=== PATIENT | female | born 1965 | race Two or more races ===

== ENCOUNTER → 2018-04-26 | Outpatient (CLI) | payer MEDICARE, OTHER ==
--- NOTE | 2018-04-26 11:30 | WOMENS IMAGING REPORT ---
EXAM DESCRIPTION: 3D SCREENING MAMMO BILAT COMPLETED DATE/TIME: 04/26/2018 11:02 am REASON FOR STUDY: SCREENING MAMMO Z12.31 ENCNTR SCREEN MAMMOGRAM FOR MALIGNANT NEOPLASM OF JEFF COMPARISON: None. TECHNIQUE: Standard craniocaudal and mediolateral oblique views of each breast recorded using digita l acquisition and breast tomosynthesis. LIMITATIONS: None. FINDINGS: No masses, calcifications or architectural distortion. No areas of suspicion. Read with the assistance of CAD. .[facility] - R2 Cenova Version 1.3 .[facility] - R2 Cenova Version 1.3 .[facility] - R2 Cenova Version 2.4 .[facility] Cenova Version 2.4 .[facility] - R2 [employer]er Tender Version 9.2 IMPRESSION: NORMAL MAMMOGRAM. BIRADS 1. BREAST DENSITY: b. There are scattered areas of fibroglandular density. BIRAD: 1 NEGATIVE RECOMMENDATION: ROUTINE SCREENING Please continue yearly bilateral screening mammography/tomosynthesis in April 2019 COMMENT: The patient has been notified of the results by letter per MQSA requirements. Additional no tification policies are in place for contacting patient with suspicious or incomplete findings. Quality ID #[id number]: The [employer] recommends an annual screening mammogram for women aged 40 years or over. This facility utilizes a reminder system to ensure that all patients receive reminder letters, and/or direct phone calls for appointments. This includes reminders for routine scr eening mammograms, diagnostic mammograms, or other Breast Imaging Interventions when appropriate. Th is patient will be placed in the appropriate reminder system. The [employer] (ACR) has developed recommendations for screening MRI of the breast s in certain patient populations, to be used in conjunction with mammography. Breast MRI surveillanc e may be appropriate for women with more than 20% lifetime risk of developing breast cancer as deter mined by genetic testing, significant family history of the disease, or history of mantle radiation f or Hodgkins Disease. ACR Practice Guidelines 2008. DBT Technology DBT is a type of tomographic mammography. With conventional mammography, overlapping breast tissue ma y make lesions difficult to detect, even with good compression. DBT uses an x-ray tube that rotates a round the breast, taking images at different angles. These images are then combined to create thin sl ices of the breast that the radiologist can view as a 3D reconstruction. The [employer] unit can perform full-field digital mammograms (2D imaging); or DBT (3D imaging); or both, in a combination mode that quickly performs both the mammogram and the tomosynthesis scan while the breast is still compressed. PQRS 6045F: Fluoroscopic imaging is not utilized for breast tomosynthesis. TECHNICAL DOCUMENTATION: FINDING NUMBER: (1) ASSESSMENT: (1) JOB ID: [id number] [employer]- All Rights Reserved Reading location - IP/workstation name: [facility]-[email or web address]
== END ==
LOC: WI 09:34
PROVIDERS: ATTEND Nurse Practitioner
DX: Z12.31 Encounter for screening mammogram for malignant neoplasm of breast (principal)
CPT/HCPCS: 77063; 77067

== ENCOUNTER 2019-01-14 21:03 | Observation (INO) | payer MEDICARE ==
[2019-01-14] MEDS ORDERED: NORMAL SALINE 1000 ML 1,000 ML IV ONE (22:09)
--- NOTE | 2019-01-14 22:16 | ER Document Report ---
ED Cardiac - General Chief Complaint: Palpitations Stated Complaint: RAPID HEART RATE,DIZZY,NAUSEA Time Seen by Provider: 01/14/19 21:50 Primary Care Provider: JENNIFER MOSES NP [Primary Care Provider] - Follow up as needed Mode of Arrival: Ambulatory Information source: Patient TRAVEL OUTSIDE OF THE [place] IN LAST 30 DAYS: No - HPI Patient complains to provider of: Palpitations, Shortness of breath Notes: Patient is here with complaints of tachycardia and exertional dyspnea. The patient states for the last several weeks, she is noticed that her heart rate has been higher than normal. Running anywhere from 100-140. She does have a previous history of SVT and has had a cardiac ablation in the past. She states that over the last several weeks she is also had some exertional dyspnea and episodes of feeling like she is going to pass out. She denies any actual syncopal episodes. She denies any chest pain. She has a history of hypertension, high cholesterol, diabetes. No history of CAD. She denies any recent long trips or surgeries, leg pain or leg swelling, hormone use, cancer, history of DVT or PE. She denies any abdominal pain. No nausea, vomiting, diarrhea. She states that occasionally when she feels like she is going to pass out, she does get slightly diaphoretic. She denies any history of congestive heart failure. She denies any abdominal pain. No other specific complaints at this time. - Related Data Allergies/Adverse Reactions: latex Allergy (Verified 01/14/19 22:17) Past Medical History - Social History Smoking Status: Never Smoker Frequency of alcohol use: Occasional Drug Abuse: None Family History: Reviewed & Not Pertinent Patient has suicidal ideation: No Patient has homicidal ideation: No - Past Medical History Cardiac Medical History: Reports: Hx Hypercholesterolemia Endocrine Medical History: Reports: Hx Diabetes Mellitus Type 2 Renal/ Medical History: Denies: Hx Peritoneal Dialysis Past Surgical History: Reports: Hx Cardiac Surgery - ablasion Review of Systems - Review of Systems -: Yes All other systems reviewed and negative Physical Exam - Vital signs Vitals: Temp Pulse Resp BP Pulse Ox 97.9 F 114 H 16 133/76 H 98 01/14/19 21:35 01/14/19 21:35 01/14/19 21:35 01/14/19 21:35 01/14/19 21:35 - Notes Notes: GENERAL: alert, cooperative, nontoxic, no distress. HEAD: normocephalic, atraumatic EYES: conjunctiva pink without discharge, no external redness or swelling. EARS: no external swelling, no external redness NOSE: atraumatic, no external swelling MOUTH/THROAT: mucous membranes moist and pink, posterior pharynx without erythema, swelling, exudate. No trismus or drooling. NECK: soft, supple, full range of motion, no meningismus. CHEST: no distress, lungs clear and equal throughout. No wheezing, rales, rhonchi. CARDIAC: regular rhythm, mild tachycardia, no murmur, normal capillary refill, normal pulses. No peripheral edema noted. ABDOMEN: Soft, nontender. BACK: full range of motion, no CVA tenderness. EXTREMITIES: full range of motion of all extremities. No redness, no swelling. NEURO: alert and oriented x 3, no focal deficits, full range of motion of all extremities. PYSCH: appropriate mood, affect. Patient is cooperative. SKIN: pink, warm, dry, no rash. Course - Re-evaluation Re-evalutation: 01/14/19 23:18 Patient noted to have a low potassium at 3.2, as well as a low magnesium of 1.2. I have ordered potassium p.o. and magnesium IV. We will continue to monitor at this time. The remainder of her labs are unremarkable at this point. 01/14/19 23:35 Patient is resting comfortably at this time. D-dimer has been ordered. We will await the results of this test to determine if CTA is required. Heart score is 4, making her moderate risk of 12 to 16.6% of MACE. Will await d-dimer results. If negative, do believe that the patient should be admitted to the hospital due to her exertional dyspnea and near syncope. She will require further evaluation. 01/15/19 01:00 Patient currently resting comfortably at this time. Patient here with complaints of palpitations, near syncope, exertional dyspnea for the last several weeks. She is noted to be mildly tachycardic. She has a prior history of SVT with ablation. EKG did show today shows sinus tachycardia with no SVT or other ischemic changes. Troponin is negative. Her magnesium and potassium were both noted to be low and were both repleted here in the emergency department. D-dimer is negative, the patient has no other PE risk factors, therefore I do not believe any further PE rule out is indicated at this time. Due to the fact that the patient is having exertional dyspnea with near syncope and tachycardia, believe she should be admitted to the hospital for further evaluation and management with possible echocardiogram. Case was discussed with the hospitalist. Patient will be admitted to the hospital. - Vital Signs Vital signs: Temp Pulse Resp BP Pulse Ox 97.9 F 114 H 23 H 108/71 96 01/14/19 21:35 01/14/19 21:35 01/15/19 00:01 01/15/19 00:01 01/15/19 00:01 - Laboratory Result Diagrams: 01/14/19 22:06 01/14/19 22:06 Laboratory results interpreted by me: 01/14/19 01/14/19 22:06 22:06 WBC 10.8 H Potassium 3.2 L Chloride 97 L Magnesium 1.2 L* - EKG Interpretation by Me EKG shows normal: Sinus rhythm, [place], Intervals, QRS Complexes Rate: Tachycardia When compared to previous EKG there are: Other - Rate of 108, sinus tachycardia, no ST elevation or depression, no STEMI. Nonspecific T wave abnormalities with inversion in lead III and aVF. Also flattened T waves in V2, inverted T wave in V3. No previous EKGs to compare this to. Discharge - Discharge Clinical Impression: Palpitations, Hypokalemia, Hypomagnesemia, Exertional dyspnea, Near syncope Condition: Stable Disposition: ADMITTED OBSERVATION Admitting Provider: Emily (Hospitalist) Unit Admitted: Telemetry Referrals: JENNIFER MOSES NP [Primary Care Provider] - Follow up as needed
[2019-01-14 22:25] LABS: ABSOLUTE EOSINOPHILS # (AUTO) 0.1 10^3/uL (0.0-0.6); ABSOLUTE LYMPHOCYTES (AUTO) 4.7 10^3/uL (0.5-4.7); ABSOLUTE MONOCYTES (AUTO) 0.8 10^3/uL (0.1-1.4); ABSOLUTE NEUT (AUTO) 5.2 10^3/uL (1.7-8.2); BASOPHILS % (AUTO) 0.4 % (0-2); EOSINOPHILS % (AUTO) 0.8 % (0-6); HEMATOCRIT 38.7 % (36.0-47.0); HEMOGLOBIN 13.1 g/dL (12.0-15.5); LYMPHOCYTES % (AUTO) 43.6 % (13-45); MEAN CORPUSCULAR HEMOGLOBIN 27.7 pg (27.0-33.4); MEAN CORPUSCULAR VOLUME 82 fl (80-97); PLATELET COUNT 307 10^3/uL (150-450); RED BLOOD COUNT 4.74 10^6/uL (3.72-5.28); RED CELL DISTRIBUTION WIDTH 13.6 % (11.5-14.0); SEGMENTED NEUTROPHILS % (AUTO) 48.2 % (42-78); TOTAL CELLS COUNTED % (AUTO) 100 %; WHITE BLOOD COUNT 10.8 10^3/uL (4.0-10.5)
[2019-01-14 22:41] LABS: ALANINE AMINOTRANSFERASE 29 U/L (9-52); ALBUMIN 4.2 g/dL (3.5-5.0); ALKALINE PHOSPHATASE 104 U/L (38-126); ANION GAP 12 (5-19); ASPARTATE AMINO TRANSFERASE 27 U/L (14-36); BILIRUBIN,DIRECT 0.2 mg/dL (0.0-0.4); BILIRUBIN,TOTAL 0.6 mg/dL (0.2-1.3); BLOOD UREA NITROGEN 17 mg/dL (7-20); CALCIUM 9.7 mg/dL (8.4-10.2); CARBON DIOXIDE 30 mmol/L (22-30); CHLORIDE 97 mmol/L (98-107); GLUCOSE 94 mg/dL (75-110); POTASSIUM 3.2 mmol/L (3.6-5.0); SODIUM 138.7 mmol/L (137-145); TOTAL PROTEIN 7.1 g/dL (6.3-8.2)
[2019-01-14 22:52] LABS: NT PRO BNP 16 pg/mL (5-900); TROPONIN I < 0.012 ng/mL
--- NOTE | 2019-01-14 23:07 | RADIOLOGY REPORT (SQ) ---
EXAM DESCRIPTION: XR CHEST 2 VIEWS COMPLETED DATE/TME: 01/14/2019 22:09 CLINICAL HISTORY: sob, dizziness COMPARISON: None. FINDINGS: Frontal and lateral views of the chest. The cardiomediastinal silhouette has normal size and contour. No consolidation, pneumothorax, or pleural effusion. No displaced rib fractures identified. Leads overlie the chest. Prior cholecystectomy. IMPRESSION: 1. No acute pulmonary process identified.
[2019-01-14] MEDS ORDERED: POTASSIUM CHLORIDE 10 MEQ CAPSULE.ER PO ONE (23:17)
[2019-01-14] MEDS: MAGNESIUM SULFATE/D5W 1 GM/100 ML RTUPB IV SCH (23:25)
[2019-01-15] MEDS ORDERED: ACETAMINOPHEN 325 MG TABLET PO PRN (01:07)
[2019-01-15] MEDS ORDERED: ONDANSETRON HCL INJ/PF 4 MG/2 ML SDV IV PRN (01:07)
[2019-01-15] MEDS ORDERED: MAGNESIUM HYDROXIDE SUSP 30 ML UDCUP PO PRN (01:07)
[2019-01-15] MEDS ORDERED: ZOLPIDEM TARTRATE 5 MG TABLET PO PRN (01:07)
[2019-01-15] MEDS ORDERED: MAG HYDROX/AL HYDROX/SIMETH SUSP 30 ML UDCUP PO PRN (01:07)
[2019-01-15] MEDS ORDERED: NORMAL SALINE 1000 ML 1,000 ML IV PRN ×2 (01:07→15:03)
[2019-01-15] MEDS: MAGNESIUM SULFATE/D5W 1 GM/100 ML RTUPB IV SCH (01:37)
[2019-01-15] MEDS ORDERED: CLONAZEPAM 1 MG TABLET PO PRN (01:57)
[2019-01-15] MEDS ORDERED: MECLIZINE HCL 25 MG TABLET PO PRN (01:58)
--- NOTE | 2019-01-15 02:09 | PDOC H&P ---
History of Present Illness Admission Date/PCP: 01/15/19 01:15 JENNIFER MOSES NP Patient complains of: Nausea and fainting feeling History of Present Illness: TONY KRISHNA is a 53 year old female with a history of hypertension, type 2 diabetes mellitus and dyslipidemia as well as chronic back pain and SVT status post cardiac ablation who presented to the emergency room with acute onset of nausea with presyncope and mild disorientation today as well as recent dyspnea that is mainly on exertion. She has been having dyspnea going from the kitchen to the bathroom. She had been at the palpitations today without chest pain. She stated that she would need to lay down after taking a shower from exhaustion. She denies any fever or chills. No vomiting or abdominal pain. She stopped taking Lasix about 2-3 weeks ago when she ran out. She has been using it for lower extremity edema on a as needed basis for a while and recently on a as needed basis. No dysuria, oliguria or hematuria or flank pain. Upon presentation to the emergency room, her pulse was 114 and blood pressure 133/76 with a temperature of 97.9 and pulse oximetry of 98% on room air with respiratory rate of 16. Labs revealed minimal leukocytosis of 10.8 and her d- dimer was 0.38. Her CMP was remarkable for hypokalemia 3.2 and hypomagnesemia of 1.2 with negative troponin I less than 0.0 212. TSH came back 2.39. Portable chest x-ray showed no acute cardiopulmonary disease. EKG showed sinus tachycardia with a rate of 108. Portable chest x-ray showed no acute cardiopulm onary disease and EKG showed sinus tachycardia with a rate of 108. The patient was given 40 meticortelone p.o. potassium chloride as well as 2 g of IV magnesium sulfate. She will be admitted to an observation telemetry bed for further evaluation and management. Past Medical History Cardiac Medical History: Reports: Hyperlipidema, Hypertension, Other - SVT status post cardiac ablation and leg edema Endocrine Medical History: Reports: Diabetes Mellitus Type 2 GI Medical History: Reports: Other - Irritable bowel syndrome Musculoskeltal Medical History: Reports: Other - Chronic back pain Psychiatric Medical History: Reports: Depression, Other - And anxiety Past Surgical History Past Surgical History: Reports: Cholecystectomy, Tonsillectomy, Other - 4 back surgeries, cardiac ablation for SVT, radiofrequency ablation likely Social History Smoking Status: Never Smoker Frequency of Alcohol Use: Rare Hx Recreational Drug Use: No Family History Family History: Significantly positive for DE. Father from [place] at age of 63 and her sister had DE at age of 58. Another sister had an DE at age of 50 and a brother at age of 60. History is otherwise positive for diabetes mellitus and hypertension. Parental Family History Reviewed: Yes Children Family History Reviewed: Yes Sibling(s) Family History Reviewed.: Yes Medication/Allergy Home Medications: Aspirin [Ecotrin 81 mg EC Tablet] 81 mg PO DAILY 01/14/19 Atorvastatin Calcium [Lipitor 80 mg Tablet] 80 mg PO DAILY 01/14/19 Clonazepam [Klonopin] 0.5 mg PO BID PRN 01/14/19 Furosemide [Lasix 20 mg Tablet] 20 mg PO DAILY 01/14/19 Linaclotide [Linzess 145 Mcg Capsule] 145 mcg PO DAILY 01/14/19 Meclizine HCl [Antivert 25 mg Tablet] 25 mg PO TID PRN 01/14/19 Meloxicam [Mobic] 15 mg PO DAILY 01/14/19 Metformin HCl 1,000 mg PO BID 01/14/19 Sertraline HCl 100 mg PO DAILY 01/14/19 Trazodone HCl 50 mg PO QHS 01/14/19 Allergies/Adverse Reactions: latex Allergy (Verified 01/14/19 22:17) Review of Systems Review of Systems: As per history of present illness. All pertinent systems were reviewed above. Constitutional, HEENT, cardiovascular, respiratory, GI, , musculoskeletal, neuro, psychiatric, endocrine, integumentary and hematologic systems were reviewed and are otherwise negative/unremarkable except for positive findings mentioned above in the HPI. Physical Exam Vital Signs: Temp Pulse Resp BP Pulse Ox 97.9 F 114 H 23 H 108/71 96 01/14/19 21:35 01/14/19 21:35 01/15/19 00:01 01/15/19 00:01 01/15/19 00:01 Intake & Output 01/13/19 01/14/19 01/15/19 06:59 06:59 06:59 Intake Total 1100 Balance 1100 Weight 70.1 kg Exam: Generally: Pleasant middle-aged female in no acute distress Vital signs-as listed Head - atraumatic, normocephalic. Pupils - equal, round and reactive to light and accommodation. Extraocular movements are intact. No scleral icterus. Oropharynx - moist mucous membranes and tongue. No pharyngeal erythema or exudate. Neck - supple. No JVD. Carotid pulses 2+ bilaterally. No carotid bruits. No palpable thyromegaly or lymphadenopathy. Cardiovascular - regular rate and rhythm. Normal S1 and S2. No murmurs, gallops or rubs. Lungs - clear to auscultation bilaterally. Abdomen - soft and nontender. Positive bowel sounds. No palpable organomegaly or masses. Extremities - no pitting edema, clubbing or cyanosis. Neuro - grossly non-focal. Skin - no rashes. Breast, pelvic and rectal - deferred Results Laboratory Results: 01/14/19 22:06 01/14/19 22:06 01/14/19 01/14/19 01/14/19 22:06 22:06 22:06 WBC 10.8 H RBC 4.74 Hgb 13.1 Hct 38.7 MCV 82 MCH 27.7 MCHC 34.0 RDW 13.6 Plt Count 307 Seg Neutrophils % 48.2 Lymphocytes % 43.6 Monocytes % 7.0 Eosinophils % 0.8 Basophils % 0.4 Absolute Neutrophils 5.2 Absolute Lymphocytes 4.7 Absolute Monocytes 0.8 Absolute Eosinophils 0.1 Absolute Basophils 0.0 Sodium 138.7 Potassium 3.2 L Chloride 97 L Carbon Dioxide 30 Anion Gap 12 BUN 17 Creatinine 0.72 Est GFR ( Amer) > 60 Est GFR (Non-Af Amer) > 60 Glucose 94 Calcium 9.7 Magnesium 1.2 L* Total Bilirubin 0.6 AST 27 ALT 29 Alkaline Phosphatase 104 Total Protein 7.1 Albumin 4.2 TSH 2.39 01/14/19 22:06 Troponin I < 0.012 NT-Pro-B Natriuret Pep 16 Impressions: Chest X-Ray 01/14/19 22:09 IMPRESSION: 1. No acute pulmonary process identified. Assessment and Plan - Diagnosis (1) Near syncope Is this a current diagnosis for this admission?: Yes Plan: The patient was admitted to an observation medically monitored bed. Will check her orthostatics q.12 hours. The patient will be gently hydrated with IV normal saline and monitored for arrhythmias. Will replace her potassium and magnesium. Differential diagnosis would include neuraly mediated syncope, cardiogenic, arrhythmias related, orthostatic hypotension and less likely hypoglycemia. (2) Exertional dyspnea Is this a current diagnosis for this admission?: Yes Plan: A cardiology consultation will be obtained. She is been having a history of lower extremity edema. She would likely need a 2D echo. (3) Hypokalemia Is this a current diagnosis for this admission?: Yes Plan: Potassium was replaced and will be monitored. (4) Hypomagnesemia Is this a current diagnosis for this admission?: Yes Plan: Magnesium was replaced and will be monitored. (5) Palpitations Is this a current diagnosis for this admission?: Yes Plan: This is likely related to sinus tachycardia could be due to her hypokalemia and hypomagnesemia. It could have been contributing to her presyncope. (6) Type 2 diabetes mellitus Is this a current diagnosis for this admission?: Yes Plan: Supplemental coverage with NovoLog and will hold off metformin (7) Dyslipidemia Is this a current diagnosis for this admission?: Yes Plan: Continue statin therapy (8) DVT prophylaxis Is this a current diagnosis for this admission?: Yes Plan: Subcutaneous Lovenox - Time Within: within 24 hours - Plan Summary Plan Summary: We will resume her trazodone and Klonopin as well as Zoloft for her depression and Linzess for her IBS. I will hold off her meloxicam while we are ruling out acute coronary syndrome. Her aspirin will will be resumed. The plan of care was discussed in details with the patient. I answered all questions. The patient agreed to proceed with the above-mentioned plan. The patient is presumably full code. This note was created by [employer] software and may contain typo errors that may have not been proofread.
[2019-01-15] MEDS ORDERED: ATORVASTATIN CALCIUM 80 MG TABLET PO ONE (02:15)
[2019-01-15 05:13] LABS: ABSOLUTE EOSINOPHILS # (AUTO) 0.1 10^3/uL (0.0-0.6); ABSOLUTE LYMPHOCYTES (AUTO) 4.2 10^3/uL (0.5-4.7); ABSOLUTE MONOCYTES (AUTO) 0.7 10^3/uL (0.1-1.4); ABSOLUTE NEUT (AUTO) 4.9 10^3/uL (1.7-8.2); BASOPHILS % (AUTO) 0.4 % (0-2); EOSINOPHILS % (AUTO) 1.1 % (0-6); HEMOGLOBIN 11.9 g/dL (12.0-15.5); MEAN CORPUSCULAR HEMOGLOBIN 27.7 pg (27.0-33.4); MEAN CORPUSCULAR HGB CONC 34.2 g/dL (32.0-36.0); MEAN CORPUSCULAR VOLUME 81 fl (80-97); MONOCYTES % (AUTO) 6.9 % (3-13); PLATELET COUNT 249 10^3/uL (150-450); RED BLOOD COUNT 4.31 10^6/uL (3.72-5.28); RED CELL DISTRIBUTION WIDTH 13.3 % (11.5-14.0); SEGMENTED NEUTROPHILS % (AUTO) 49.6 % (42-78); TOTAL CELLS COUNTED % (AUTO) 100 %; WHITE BLOOD COUNT 9.9 10^3/uL (4.0-10.5)
[2019-01-15 05:45] LABS: TROPONIN I < 0.012 ng/mL
[2019-01-15 05:47] LABS: ANION GAP 9 (5-19); BLOOD UREA NITROGEN 13 mg/dL (7-20); CALCIUM 8.9 mg/dL (8.4-10.2); CARBON DIOXIDE 27 mmol/L (22-30); CHLORIDE 104 mmol/L (98-107); CHOLESTEROL 129.05 mg/dL (0-200); GLUCOSE 117 mg/dL (75-110); POTASSIUM 3.5 mmol/L (3.6-5.0); SODIUM 139.6 mmol/L (137-145); TRIGLYCERIDES 108 mg/dL (<150)
[2019-01-15 05:58] LABS: DIRECT LDL 88 mg/dL (<100)
[2019-01-15] MEDS ORDERED: PANTOPRAZOLE SODIUM 40 MG TABLET.DR PO SCH (06:00)
--- NOTE | 2019-01-15 09:47 | EKG REPORT ---
SEVERITY:- BORDERLINE ECG - SINUS RHYTHM PROBABLE LEFT ATRIAL ABNORMALITY NONSPECIFIC ST-T CHANGES- INFERIOR LEADS : Confirmed by: Meng Jones MD 15-Jan-2019 09:46:39
--- NOTE | 2019-01-15 09:49 | EKG REPORT ---
SEVERITY:- DEFECTIVE ECG - SINUS TACHYCARDIA BORDERLINE T ABNORMALITIES, INFERIOR LEADS PRECORDIAL LEAD PLACEMENT ERROR, V1 AND V3 MISPLACED, REPEAT EKG : Confirmed by: Meng Jones MD 15-Jan-2019 09:48:57
[2019-01-15] MEDS ORDERED: (PENDING PHARMACY ID) (Linaclotide 145 MCG) PO SCH (10:00)
[2019-01-15] MEDS ORDERED: ENOXAPARIN SODIUM INJ 40 MG/0.4 ML DISP.SYRIN SUBCUT SCH (10:00)
[2019-01-15] MEDS ORDERED: ASPIRIN 81 MG TABLET, ENT COATED PO SCH (10:00)
[2019-01-15] MEDS ORDERED: SERTRALINE HCL 50 MG TABLET PO SCH (10:00)
[2019-01-15 11:34] LABS: CREATINE KINASE MB 0.46 ng/mL (<4.55)
[2019-01-15 11:38] LABS: TROPONIN I < 0.012 ng/mL
[2019-01-15] MEDS ORDERED: POTASSIUM CHLORIDE 10 MEQ CAPSULE.ER PO ONE (16:30)
[2019-01-15 16:56] LABS: CREATINE KINASE MB 0.56 ng/mL (<4.55)
[2019-01-15 16:58] LABS: TROPONIN I < 0.012 ng/mL
--- NOTE | 2019-01-15 17:34 | PDOC DISCHARGE SUMMARY ---
General - Admit/Disc Date/PCP Admission Date/Primary Care Provider: 01/15/19 01:15 JENNIFER MSOES NP Discharge Date: 01/15/19 - Discharge Diagnosis (1) Near syncope Is this a current diagnosis for this admission?: Yes Summary: The patient has a history of SVT. She has been feeling lightheaded. She also has been experiencing palpitations. She had decrease her magnesium and decr eased potassium on admission. She did feel better with fluids overnight. She states that her appetite has been poor but she does drink liquids. Interestingly she felt better this morning. Her IV fluids stopped at noon. She took a shower. She then was feeling slightly poorly. After further discussion it was agreed that she would get 1 L of IV fluid and then discharged home. She will need follow-up with her primary care provider. No episodes of near syncope today. (2) Hypokalemia Is this a current diagnosis for this admission?: Yes Summary: Etiology of her hypokalemia is unclear. Her diet has been poor and this cert ainly could contribute. She is on furosemide. She will be given a prescription for calcium chloride to take daily. Recheck electrolytes at primary care follow-up. (3) Hypomagnesemia Is this a current diagnosis for this admission?: Yes Summary: Magnesium level was very low on admission. Etiology is unclear. She is not on a proton pump inhibitor as this can decrease magnesium levels. She was given a prescription for magnesium oxide. Recheck electrolytes at primary care follow- up. (4) Hypertension Is this a current diagnosis for this admission?: Yes Summary: Patient has a history of hypertension but her orthostatic vital signs were normal. She will continue on furosemide with electrolyte supplementation as above. (5) Exertional dyspnea Is this a current diagnosis for this admission?: Yes Summary: The reason for the exertional dyspnea is unclear. The patient did not have evid ence of congestive heart failure. Discussions with the patient's revealed that she is under stress. At the time of discharge she reported that she is no longer taking sertraline. This could be a manifestation of untreated depression. I will defer to her primary care provider for follow-up. (6) Type 2 diabetes mellitus Is this a current diagnosis for this admission?: Yes Summary: Continue metformin. Diabetic diet. (7) Dyslipidemia Is this a current diagnosis for this admission?: Yes Summary: Continue atorvastatin therapy. - Additional Information Resuscitation Status: Full Code Discharge Diet: Cardiac Discharge Activity: Activity As Tolerated, Balance Activity w/Rest Prescriptions: Magnesium Oxide [Magox] 400 mg PO BID 30 Days #60 tablet Potassium Chloride 10 meq PO DAILY 30 Days #30 tablet.er Home Medications: Aspirin [Ecotrin 81 mg EC Tablet] 81 mg PO DAILY 01/14/19 Atorvastatin Calcium [Lipitor 80 mg Tablet] 80 mg PO DAILY 01/14/19 Clonazepam [Klonopin] 0.5 mg PO BID PRN 01/14/19 Furosemide [Lasix 20 mg Tablet] 20 mg PO DAILY 01/14/19 Linaclotide [Linzess 145 Mcg Capsule] 145 mcg PO DAILY 01/14/19 Meclizine HCl [Antivert 25 mg Tablet] 25 mg PO TID PRN 01/14/19 Meloxicam [Mobic] 15 mg PO DAILY 01/14/19 Metformin HCl 1,000 mg PO BID 01/14/19 Sertraline HCl 100 mg PO DAILY 01/14/19 Trazodone HCl 50 mg PO QHS 01/14/19 Magnesium Oxide [Magox] 400 mg PO BID 30 Days #60 tablet 01/15/19 Potassium Chloride 10 meq PO DAILY 30 Days #30 tablet.er 01/15/19 History of Present Illness Patient complains of: Near syncope History of Present Illness: TONY KRISHNA is a 53 year old female with a history of cardiac arrhythmia status post ablation. She also has diabetes mellitus type 2, hypertension, hyperlipidemia and depression. She presented to the emergency department with worsening symptoms of exertional dyspnea, palpitations, generalized feeling of weakness and unwellness. She was found to be hypokalemic and significantly hypomagnesemic. Troponin studies were negative. The patient was referred to [facility] service for admission. Hospital Course Hospital Course: The patient was given intravenous fluids and electrolytes were corrected. She states she felt better this morning when she was getting IV fluids. Since her IV has been disconnected she states that she has not felt as well. She did not appear to be anxious for home but upon further discussion she would like to return home. I explained that if I gave her another liter of fluid I believe she would feel better. She will also have prescriptions for potassium and magnesium supplements. She will receive 1 L of IV fluid over 3 hours and be discharged home. Physical Exam Vital Signs: Temp Pulse Resp BP Pulse Ox 97.9 F 79 18 113/68 100 01/15/19 12:30 01/15/19 12:30 01/15/19 12:30 01/15/19 12:30 01/15/19 12:30 Intake & Output 01/14/19 01/15/19 01/16/19 06:59 06:59 06:59 Intake Total 1440 1000 Balance 1440 1000 Weight 70.1 kg General appearance: PRESENT: no acute distress, cooperative, well-developed Head exam: PRESENT: atraumatic, normocephalic Ear exam: PRESENT: normal external ear exam Mouth exam: PRESENT: moist, tongue midline Respiratory exam: PRESENT: clear to auscultation guera, symmetrical, unlabored. ABSENT: rales, rhonchi, tachypnea, wheezes Cardiovascular exam: PRESENT: RRR, +S1, +S2, systolic murmur - 2/6 GI/Abdominal exam: PRESENT: normal bowel sounds, soft. ABSENT: distended, tenderness Rectal exam: PRESENT: deferred Gentrourinary exam: ABSENT: indwelling catheter Extremities exam: ABSENT: pedal edema Musculoskeletal exam: PRESENT: ambulatory, normal inspection Neurological exam: PRESENT: alert, awake, oriented to person, oriented to place, oriented to time, oriented to situation, CN II-XII grossly intact Psychiatric exam: PRESENT: anxious, flat affect. ABSENT: agitated Focused psych exam: ABSENT: delusional, restlessness Results Laboratory Results: 01/15/19 04:27 01/15/19 04:27 01/14/19 01/14/19 01/14/19 22:06 22:06 22:06 WBC 10.8 H RBC 4.74 Hgb 13.1 Hct 38.7 MCV 82 MCH 27.7 MCHC 34.0 RDW 13.6 Plt Count 307 Seg Neutrophils % 48.2 Lymphocytes % 43.6 Monocytes % 7.0 Eosinophils % 0.8 Basophils % 0.4 Absolute Neutrophils 5.2 Absolute Lymphocytes 4.7 Absolute Monocytes 0.8 Absolute Eosinophils 0.1 Absolute Basophils 0.0 Sodium 138.7 Potassium 3.2 L Chloride 97 L Carbon Dioxide 30 Anion Gap 12 BUN 17 Creatinine 0.72 Est GFR ( Amer) > 60 Est GFR (Non-Af Amer) > 60 Glucose 94 Calcium 9.7 Magnesium 1.2 L* Total Bilirubin 0.6 AST 27 ALT 29 Alkaline Phosphatase 104 Total Protein 7.1 Albumin 4.2 Triglycerides Cholesterol LDL Cholesterol Direct VLDL Cholesterol HDL Cholesterol TSH 2.39 01/15/19 01/15/19 04:27 04:27 WBC 9.9 RBC 4.31 Hgb 11.9 L Hct 35.0 L MCV 81 MCH 27.7 MCHC 34.2 RDW 13.3 Plt Count 249 Seg Neutrophils % 49.6 Lymphocytes % 42.0 Monocytes % 6.9 Eosinophils % 1.1 Basophils % 0.4 Absolute Neutrophils 4.9 Absolute Lymphocytes 4.2 Absolute Monocytes 0.7 Absolute Eosinophils 0.1 Absolute Basophils 0.0 Sodium 139.6 Potassium 3.5 L Chloride 104 Carbon Dioxide 27 Anion Gap 9 BUN 13 Creatinine 0.53 Est GFR ( Amer) > 60 Est GFR (Non-Af Amer) > 60 Glucose 117 H Calcium 8.9 Magnesium 1.9 Total Bilirubin AST ALT Alkaline Phosphatase Total Protein Albumin Triglycerides 108 Cholesterol 129.05 LDL Cholesterol Direct 88 VLDL Cholesterol 22.0 HDL Cholesterol 42 TSH 01/14/19 01/15/19 01/15/19 22:06 04:27 04:27 Creatine Kinase 95 CK-MB (CK-2) 0.50 Troponin I < 0.012 < 0.012 NT-Pro-B Natriuret Pep 16 01/15/19 01/15/19 10:30 10:30 Creatine Kinase 91 CK-MB (CK-2) 0.46 Troponin I < 0.012 NT-Pro-B Natriuret Pep Impressions: Chest X-Ray 01/14/19 22:09 IMPRESSION: 1. No acute pulmonary process identified. Qualifiers - * PATIENT BEING DISCHARGED WITH ANY OF THE FOLLOWING DIAGNOSIS: No Plan Discharge Plan: Follow-up with primary care provider. Time Spent: Greater than 30 Minutes
[2019-01-15 19:46] VITALS: BP 116/74
[2019-01-15] MEDS ORDERED: ATORVASTATIN CALCIUM 80 MG TABLET PO SCH (22:00)
[2019-01-15] MEDS ORDERED: TRAZODONE HCL 50 MG TABLET PO SCH (22:00)
== END 2019-01-15 19:46 | disposition home or self-care (01) ==
LOC: ER 21:03 → EH 01-15 01:15 → 4N 01-15 02:15
PROVIDERS: ADMIT Family Medicine; ATTEND Family Medicine
DX: R55 Syncope and collapse (principal); E87.6 Hypokalemia; E83.42 Hypomagnesemia; I10 Essential (primary) hypertension; R06.09 Other forms of dyspnea; Z73.3 Stress, not elsewhere classified; E11.9 Type 2 diabetes mellitus without complications; E78.5 Hyperlipidemia, unspecified; F32.9 Major depressive disorder, single episode, unspecified; R00.2 Palpitations; R53.1 Weakness; G89.29 Other chronic pain; M54.9 Dorsalgia, unspecified; D72.829 Elevated white blood cell count, unspecified; K58.9 Irritable bowel syndrome, unspecified; Z79.82 Long term (current) use of aspirin; Z79.899 Other long term (current) drug therapy; Z79.84 Long term (current) use of oral hypoglycemic drugs; Z98.890 Other specified postprocedural states; Z86.79 Personal history of other diseases of the circulatory system; Z82.49 Family history of ischemic heart disease and other diseases of the circulatory system; Z90.49 Acquired absence of other specified parts of digestive tract
CPT/HCPCS: 93005 ×2; 99285; 96361; 96365; 36415 ×2; 82553; 82962; 82550; 83735 ×2; 84443; 85025 ×2; 80048; 80053; 84484 ×2; 85379; 80061; 83880; 71046; 93010 ×2; G0378 ×2; A9270 ×5; J3475 ×2; J7030 ×2; J3490